=== PATIENT | male | born 1940 | race Caucasian/White ===

== ENCOUNTER → 2019-11-29 13:43 | Outpatient (BNVA) | payer MEDICARE, SELFPAY | PROVIDERS: Family Provider Family Medicine; Visit Provider Nurse Practitioner Family | DX: Z11.59 Encounter for screening for other viral diseases (principal) | CPT/HCPCS: 87635 ==

== ENCOUNTER → 2022-01-01 10:10 | Outpatient (BNVA) | payer MEDICARE, SELFPAY | PROVIDERS: Family Provider Family Medicine; PCP Family Medicine; Visit Provider Family Medicine | DX: Z51.81 Encounter for therapeutic drug level monitoring (principal); R73.03 Prediabetes; I10 Essential (primary) hypertension; R30.0 Dysuria | CPT/HCPCS: 80053; 80061; 81000; 83036; 85025; 87077; 87086; 87184 ==

== ENCOUNTER 2022-02-17 09:54 | Outpatient (CLI) | payer MEDICARE, SELFPAY ==
--- NOTE | 2022-02-17 10:15 | US_ITS ---
WS: [id number] 1.44 x 1.75 x 1.85 cm. Bilateral renal ultrasound, 02/17/2022 Clinical Data: Urinary retention - With pre/post void res volume Comparison: None. Findings: The right kidney measures 10.5 cm x 4.6 cm x 5.2 cm and the left kidney is 11.4 cm x 4.9 cm x 5.1 cm. There is a simple left renal cyst measuring 1.44 x 1.75 x 1.85 cm. There are no masses or hydronephr osis. The renal cortical margin is normal. No renal calculi are seen. The prostate is enlarged measuring 3.64 x 3.86 x 4.03 cm. The abdominal aorta and inferior vena cava show no vascular abnormalities. Prevoid bladder had 82 mL and postvoid 18 mL. US/US renal BI with PV bladder Impression: 1. Negative bilateral renal ultrasound with incidental left renal cyst. 2. Prostate enlargement. 3. Prevoid bladder head 82 mL and postvoid 18 mL.
== END 2022-02-17 09:55 | disposition home or self-care (01) ==
PROVIDERS: PCP Family Medicine; Visit Provider Family Medicine
DX: R33.9 Retention of urine, unspecified (principal); N28.1 Cyst of kidney, acquired; N40.0 Benign prostatic hyperplasia without lower urinary tract symptoms
CPT/HCPCS: 76770; 76857

== ENCOUNTER → 2022-07-23 09:31 | Outpatient (BNVA) | payer MEDICARE, SELFPAY | PROVIDERS: PCP Family Medicine; Visit Provider Family Medicine | DX: E03.9 Hypothyroidism, unspecified (principal); R73.03 Prediabetes; Z51.81 Encounter for therapeutic drug level monitoring | CPT/HCPCS: 80053; 83036; 84443; 85025; 87086 ==

== ENCOUNTER → 2022-11-24 13:48 | Outpatient (BNVA) | payer MEDICARE, SELFPAY | PROVIDERS: PCP Family Medicine; Visit Provider Family Medicine | DX: R41.3 Other amnesia (principal); R30.0 Dysuria; R32 Unspecified urinary incontinence; R21 Rash and other nonspecific skin eruption | CPT/HCPCS: 87086 ==

== ENCOUNTER 2022-12-29 12:47 | Outpatient (CLI) | payer MEDICARE, SELFPAY ==
--- NOTE | 2022-12-29 13:45 | MR_ITS ---
WS: [id number] MRI BRAIN WITH AND WITHOUT CONTRAST HISTORY: Memory loss COMPARISON: None available. TECHNIQUE: Multiplanar imaging performed through the brain with MultiHance 20 ml's IV. No acute infarcts. Moderate bilateral cerebellar and cerebral atrophy. Moderate small vessel ischemic changes in the periventricular and subcortical white matter. Moderate bilateral hippocampal atrophy. No susceptibility artifacts or prior lacunar infarcts. Ventricles and extra-axial spaces are prominent on the basis of atrophy. Clivus and pituitary gland are normal. Visualized posterior fossa and brainstem are also normal. Postcontrast images are negative for masses or vascular malformations. Arteries are ectatic probably due to longstanding hypertension. Dural venous sinuses are normal. Paranasal sinuses: Well aerated with no significant disease. Mastoid air cells: Normal. Calvarium and scalp: Normal. IMPRESSION: 1. No acute infarct or mass. 2. Moderate cerebral and cerebellar atrophy with advanced small vessel ischemic disease. 3. No prior large territory infarct. 4. Ventriculomegaly is mild on the basis of atrophy.
[2022-12-29] MEDS: gadobenate dimeglumine 20 mL vial IV (14:18)
== END 2022-12-29 12:48 | disposition home or self-care (01) ==
LOC: RAD 12:48
PROVIDERS: PCP Family Medicine; Visit Provider Family Medicine
DX: R41.3 Other amnesia (principal); G31.9 Degenerative disease of nervous system, unspecified; G93.89 Other specified disorders of brain
CPT/HCPCS: 70553; A9577

== ENCOUNTER → 2023-01-25 10:46 | Outpatient (BNVA) | payer MEDICARE, SELFPAY | PROVIDERS: PCP Family Medicine; Visit Provider Psychiatry & Neurology Neurology | DX: R32 Unspecified urinary incontinence (principal); R15.9 Full incontinence of feces; R29.898 Other symptoms and signs involving the musculoskeletal system; R26.89 Other abnormalities of gait and mobility; G93.89 Other specified disorders of brain; L60.2 Onychogryphosis; M54.9 Dorsalgia, unspecified; R41.3 Other amnesia; E55.9 Vitamin D deficiency, unspecified; R29.2 Abnormal reflex; R68.89 Other general symptoms and signs; R26.81 Unsteadiness on feet | CPT/HCPCS: 36415; 82306; 82607; 83735; 83921; 84207; 85025; 86592; 86617; 86780; 99203 ==

== ENCOUNTER → 2023-01-27 14:32 | Outpatient (BNVA) | payer MEDICARE, SELFPAY | PROVIDERS: PCP Family Medicine; Visit Provider Podiatrist Foot & Ankle Surgery | DX: B35.1 Tinea unguium (principal); M79.661 Pain in right lower leg; M79.662 Pain in left lower leg | CPT/HCPCS: 11721; 99203 ==

== ENCOUNTER 2023-03-21 13:43 | Oncology outpatient (recurring) (ONCR) | payer MEDICARE, SELFPAY ==
[2023-03-21 15:50] LABS: Basophils # 0.1 10^3/uL (0.0-0.1); Basophils % 0.8 %; Eosinophils # 0.4 10^3/uL (0.0-0.8); Eosinophils % 3.2 %; Hematocrit 42.2 % (37-53); Lymphocytes # 3.1 10^3/uL (0.8-4.8); Lymphocytes % 26.2 %; Mean Corpuscular HGB Conc 33.6 g/dL (30-55); Mean Corpuscular Hemoglobin 33.2 pg (27-33); Mean Corpuscular Volume 98.6 fl (82-101); Mean Platelet Volume 9.9 fL (7.4-10.4); Monocytes # 1.1 10^3/uL (0.2-0.9); Monocytes % 9.5 %; Neutrophils # 7.04 10^3/uL (1.8-7.7); Neutrophils % 58.9 %; Nucleated Red Blood Cells % 0 %; Platelet Count 370 10^3/cmm (157-399); Red Blood Count 4.28 10^6/uL (3.85-5.65); Red Cell Distribution Width 15.2 % (12.1-15.1); White Blood Count 11.95 10^3/uL (3.29-11.43)
[2023-03-21 16:26] LABS: Alanine Aminotransferase 24 U/L (0-41); Albumin Level 4.1 g/dL (3.5-5.2); Alkaline Phosphatase 68 U/L (40-130); Anion Gap 13.5 (5-19); Aspartate Amino Transferase 22 U/L (0-40); Blood Urea Nitrogen 25 mg/dL (8-23); Calcium 9.6 mg/dL (8.5-10.5); Carbon Dioxide 28 mmol/L (22-29); Chloride 99 mmol/L (98-107); Creatinine Clr Calc Pharmacy 74.5422; Globulin 3.2 g/dL (1.3-4.6); Glucose 112 mg/dL (65-115); Osmolality Calculated 287 mOsm/kg (285-295); Potassium 4.5 mmol/L (3.5-5.1); Sodium 136 mmol/L (136-145); Total Bilirubin 0.4 mg/dL (0.15-1.2); Total Protein 7.3 g/dL (6.6-8.7)
[2023-03-21 16:43] LABS: Folate Level 2.6 ng/mL (4.5-32.2)
[2023-03-21 17:35] LABS: Vitamin B12 > 2000 pg/mL (232-1245)
[2023-03-25 15:41] LABS: Methylmalonic Acid 138 nmol/L (87-318)
== END 2023-04-14 23:59 | disposition home or self-care (01) ==
PROVIDERS: PCP Family Medicine; Visit Provider Internal Medicine
DX: D75.89 Other specified diseases of blood and blood-forming organs (principal); E53.8 Deficiency of other specified B group vitamins; R41.3 Other amnesia; R20.2 Paresthesia of skin
CPT/HCPCS: 36415; 80053; 82607; 82746; 83921; 85025; 99204

== ENCOUNTER → 2023-04-11 14:10 | Outpatient (BNVA) | payer MEDICARE, SELFPAY | PROVIDERS: PCP Family Medicine; Visit Provider Psychiatry & Neurology Neurology | DX: R32 Unspecified urinary incontinence (principal); R15.9 Full incontinence of feces; R29.898 Other symptoms and signs involving the musculoskeletal system; R29.2 Abnormal reflex; R68.89 Other general symptoms and signs; R26.81 Unsteadiness on feet; G93.89 Other specified disorders of brain | CPT/HCPCS: 99212 ==

== ENCOUNTER 2023-04-19 13:33 | Oncology outpatient (recurring) (ONCR) | payer MEDICARE, SELFPAY ==
[2023-04-19 14:51] LABS: Basophils # 0.1 10^3/uL (0.0-0.1); Basophils % 0.8 %; Eosinophils # 0.3 10^3/uL (0.0-0.8); Eosinophils % 2.6 %; Hematocrit 38.9 % (37-53); Lymphocytes # 2.9 10^3/uL (0.8-4.8); Lymphocytes % 28.4 %; Mean Corpuscular HGB Conc 33.4 g/dL (30-55); Mean Corpuscular Hemoglobin 33.1 pg (27-33); Mean Platelet Volume 10.3 fL (7.4-10.4); Monocytes % 9.6 %; Neutrophils # 5.95 10^3/uL (1.8-7.7); Nucleated Red Blood Cells % 0 %; Platelet Count 309 10^3/cmm (157-399); Red Blood Count 3.93 10^6/uL (3.85-5.65); Red Cell Distribution Width 15.9 % (12.1-15.1); White Blood Count 10.25 10^3/uL (3.29-11.43)
[2023-04-19 15:16] LABS: Alanine Aminotransferase 19 U/L (0-41); Albumin Level 4.1 g/dL (3.5-5.2); Alkaline Phosphatase 52 U/L (40-130); Anion Gap 11.7 (5-19); Aspartate Amino Transferase 16 U/L (0-40); Blood Urea Nitrogen 26 mg/dL (8-23); Calcium 9.2 mg/dL (8.5-10.5); Carbon Dioxide 26 mmol/L (22-29); Chloride 105 mmol/L (98-107); Globulin 2.5 g/dL (1.3-4.6); Glucose 98 mg/dL (65-115); Osmolality Calculated 291 mOsm/kg (285-295); Potassium 4.7 mmol/L (3.5-5.1); Sodium 138 mmol/L (136-145); Total Bilirubin 0.4 mg/dL (0.15-1.2); Total Protein 6.6 g/dL (6.6-8.7)
[2023-04-19 16:23] LABS: Vitamin B12 > 2000 pg/mL (232-1245)
[2023-04-19 17:29] LABS: Folate Level 17.2 ng/mL (4.5-32.2)
[2023-04-23 10:50] LABS: Parietal Cell Antibody NEGATIVE (NEGATIVE)
[2023-04-24 16:59] LABS: Intrinsic Factor Blocking AB NEGATIVE
== END 2023-05-15 23:59 | disposition home or self-care (01) ==
PROVIDERS: Nurse Practitioner Family; PCP Family Medicine; Visit Provider Internal Medicine
DX: D75.89 Other specified diseases of blood and blood-forming organs (principal); E53.8 Deficiency of other specified B group vitamins; R41.3 Other amnesia; R20.2 Paresthesia of skin; Z53.9 Procedure and treatment not carried out, unspecified reason
CPT/HCPCS: 36415; 80053; 82607; 82746; 85025; 86255; 86340; 99214

== ENCOUNTER → 2023-06-30 11:24 | Outpatient (BNVA) | payer MEDICARE, SELFPAY | PROVIDERS: PCP Family Medicine; Visit Provider Psychiatry & Neurology Neurology | DX: R32 Unspecified urinary incontinence (principal); R15.9 Full incontinence of feces; R29.898 Other symptoms and signs involving the musculoskeletal system; R29.2 Abnormal reflex; R68.89 Other general symptoms and signs; R26.81 Unsteadiness on feet; G93.89 Other specified disorders of brain; F17.220 Nicotine dependence, chewing tobacco, uncomplicated | CPT/HCPCS: 99212 ==

== ENCOUNTER 2023-09-29 08:47 | Outpatient (CLI) | payer MEDICARE, SELFPAY ==
--- NOTE | 2023-09-29 08:52 | MR_ITS ---
WS: [id number] MRI LUMBAR SPINE NONCONTRAST HISTORY: SPINAL STENOSIS COMPARISON: 03/31/2011 TECHNIQUE: Sagittal and axial multisequence imaging is submitted. No axial imaging. Patient requested the study be terminated after the sagittal sequences were performed. Posterior lumbar vertebral bodies are normally aligned. No fractures. There is very minimal disc spac e narrowing and desiccation at L4-5 and L5-S1. Conus tapers normally with no compression. Conus terminates normally at L1-2 disc level. L1-L2: No foraminal stenosis or central stenosis. L2-L3: Mild disc bulging. No stenosis. L3-L4: Mild osteophytic ridging and annular disc bulging. There is mild foraminal narrowing. L4-L5: Mild annular disc bulging with mild ligamentum flavum and facet arthritis. There is a shallow central disc protrusion. More focal stenosis of the RIGHT foramen. There is a disc protrusion with os teophytes and facet arthritis. There is at least moderate stenosis which has progressed since 2011. M ild stenosis on the LEFT. L5-S1: Annular disc bulging with osteophytic ridging. There is mild to moderate bilateral foraminal s tenosis similar to the prior study. Paravertebral soft tissues as visualized are normal. MR/MR lumbar spine wo con* [id number] IMPRESSION: 1. Limited lumbar MRI. Patient terminated study after the sagittal sequences w ere obtained. No axial sequences submitted. 2. L4-5: Progression of RIGHT foraminal stenosis due to combination disc protr usion, osteophyte and facet disease. There is at least moderate stenosis now pr esent in the RIGHT L4-5 foramen. Mild stenosis on the LEFT. 3. Mild to moderate bilateral foraminal stenosis at L5-S1 is similar to the pr ior study.
== END 2023-09-29 08:48 | disposition home or self-care (01) ==
LOC: RAD 08:49
PROVIDERS: PCP Family Medicine; Visit Provider Psychiatry & Neurology Neurology
DX: M48.07 Spinal stenosis, lumbosacral region (principal); M51.37 Other intervertebral disc degeneration, lumbosacral region
CPT/HCPCS: 72148

== ENCOUNTER → 2023-11-03 14:52 | Outpatient (BNVA) | payer MEDICARE, SELFPAY | PROVIDERS: PCP Family Medicine; Visit Provider Orthopaedic Surgery | DX: M54.50 Low back pain, unspecified (principal); G89.29 Other chronic pain | CPT/HCPCS: 72110; 99203 ==

== ENCOUNTER → 2023-12-12 15:30 | Outpatient (BNVA) | payer MEDICARE, SELFPAY | PROVIDERS: PCP Family Medicine; Visit Provider Psychiatry & Neurology Neurology | DX: M54.50 Low back pain, unspecified (principal); R29.2 Abnormal reflex | CPT/HCPCS: 99212; 99213 ==

== ENCOUNTER → 2023-12-14 09:43 | Outpatient (BNVA) | payer MEDICARE, SELFPAY | PROVIDERS: PCP Family Medicine; Visit Provider Family Medicine | DX: Z51.81 Encounter for therapeutic drug level monitoring (principal); E55.9 Vitamin D deficiency, unspecified; R63.4 Abnormal weight loss; R32 Unspecified urinary incontinence; E53.8 Deficiency of other specified B group vitamins; N39.0 Urinary tract infection, site not specified | CPT/HCPCS: 80053; 81000; 82306; 82607; 82746; 84153; 84443; 85025; 86141 ==

== ENCOUNTER 2023-12-22 10:41 | Emergency (ER) | payer MEDICARE, SELFPAY ==
[2023-12-22 10:52] VITALS: BP 162/78; PULSE 52; RESP 18; TEMP 36.6; O2SAT 95; BMI 25.8
--- NOTE | 2023-12-22 10:56 | ECG_ITS ---
[facility]: 2023[facility]22 Pat Name: Cleveland Keita Department: Room: Gender: Male Furniture Finisher: : 1940 Requested By: Stepan Palomo Order Number: [id number] Concepcion MD: Collin Rodríguez M.D. Measurements Intervals [place] Rate: 53 P: 30 CA: 178 QRS: -18 QRSD: 99 T: 10 QT: 426 QTc: 401 Interpretive Statements SINUS BRADYCARDIA INDETERMINATE AXIS VOLTAGE CRITERIA FOR LVH [MEETS CRITERIA IN ONE OF: R(aVL), S(V1), R(V5), R(V5/V6)+S(V1)] No previous ECG available for comparison Electronically Signed On 12-22-2023 21:38:55 MATHEMATICAL ENGINEER by Collin Rodríguez M.D. [email or web address]
--- NOTE | 2023-12-22 10:56 | XR_ITS ---
WS: [id number] XR chest 1V portable [id number] REASON FOR EXAM: Uncontrolled hypertension FINDINGS: Moderate tortuosity of the thoracic aorta. Mild cardiomegaly. Calcified granulomas disease in both hemithoraces. No acute pulmonary parenchymal or pleural abnormality. Mild thoracic scoliosis with significant degenerative spondylosis of the thoracic spine. 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 XR/XR chest 1V portable [id number] IMPRESSION: No acute chest abnormality.
--- NOTE | 2023-12-22 11:04 | W.ED.ABDPA2 ---
HPI - Abdominal Pain General: Chief Complaint: Abdominal Pain Stated Complaint: b/p not under control, no apptiet, confuse Time Seen by Provider: 12/22/23 10:55 History of Present Illness: 83-year-old male presents to the emergency room with complaints of his blood pressure being poorly controlled. And he is somewhat confused he does have some dementia recently. Is also complaining some mild abdominal discomfort he usually wears depends he is been having worsening urinary continence he has not been voiding regularly. He denies any abdominal or flank pain no reported fever sweats or chills Associated Symptoms: Denies chills, dysuria and fever(s) Related Data Home Medications Medication Instructions Recorded Confirmed cholecalciferol (vitamin D3) 50 50 mcg PO DAILY 07/23/22 12/22/23 mcg (2,000 unit) capsule carvedilol 6.25 mg tablet 6.25 mg PO BID 12/22/23 12/22/23 tamsulosin 0.4 mg capsule 0.4 mg PO QPM 12/22/23 12/22/23 Previous Rx's Medication Instructions Recorded amlodipine 2.5 mg tablet 2.5 mg PO DAILY #90 tabs 03/08/23 cyanocobalamin (vitamin B-12) 1,000 mcg IM .weekly #7 mL 03/21/23 1,000 mcg/mL injection solution folic acid 1 mg tablet 1 mg PO DAILY #30 tabs 03/23/23 lisinopril 20 mg tablet 20 mg PO DAILY #90 tabs 11/21/23 ciprofloxacin HCl 500 mg tablet 500 mg PO BID #14 tabs 12/22/23 tamsulosin 0.4 mg capsule 0.8 mg (2 x 0.4 mg) PO DAILY #60 12/22/23 caps Allergies Allergy/AdvReac Type Severity Reaction Status Date / Time No Known Allergies Allergy Verified 11/03/23 15:37 Review of Systems Const: Denies: fever(s) or chills Card: Denies: chest pain Resp: Denies: dyspnea GI: Reports: abdominal pain : Denies: dysuria, urinary frequency or urinary urgency Musc: Denies: neck pain or back pain Skin/Breast: Denies: rash Neuro: Reports: confusion and behavioral changes [facility] ED PFSH: Medical History Vitamin B12 deficiency Macrocytosis without anemia Memory problem Hypertension Prediabetes Surgical History Hx of basal cell carcinoma Social History Smoking and tobacco/nicotine status: never used tobacco/nicotine Quit status (tobacco/nicotine): has quit using Former quit date comment: Quit smoking in 1984 - now chews tobacco Alcohol intake: former Physical Exam Const: COMMON NORMALS: no acute distress GENERAL APPEARANCE: cooperative and comfortable ORIENTATION/CONSCIOUSNESS: Yes awake HENMT: COMMON NORMALS: normocephalic, atraumatic and hearing grossly normal bilaterally HEAD & SCALP: normocephalic and atraumatic Resp: COMMON NORMALS: normal respiratory effort, No retractions, No use of accessory muscles and clear to auscultation bilaterally AUSCULTATION: clear to auscultation bilaterally Cardio: COMMON NORMALS: regular rate, regular rhythm and No murmurs present (Cardio) RATE: regular rate RHYTHM: regular rhythm GI: COMMON NORMALS: Soft to palpation and No hepatosplenomegaly present AUSCULTATION: Yes normoactive bowel sounds PALPATION: Yes Soft to palpation, No Tenderness to palpation present (GI), No Guarding due to palpation present (GI) and Yes No hepatosplenomegaly present Extremity: COMMON NORMALS: normal to inspection, capillary refill normal, no clubbing, cyanosis or edema, no calf tenderness and no pedal edema Skin: COMMON NORMALS: no rashes or lesions noted GENERAL SKIN EXAM: no rashes or lesions noted Course Vital Signs: Vital signs: Vital Signs Temperature 97.9 F 12/22/23 10:52 Pulse Rate 58 L 12/22/23 13:08 Respiratory Rate 18 12/22/23 10:52 Blood Pressure 178/86 12/22/23 12:44 Pulse Oximetry 100 12/22/23 13:08 Oxygen Delivery Me thod Room Air 12/22/23 10:52 MDM - Abdominal Pain Medical Decision Making Patient urinary retention. He does have a little bit of red and white blood cells in urine I suspect it is probably from a traumatic cath but he had a positive trace leukocyte Estrace. His white count is not significantly elevated. Will start him on Cipro for now till we get the culture back. We did drain around 1999 from his bladder with a catheter he had pretty significant hydronephrosis with the CT but no sign of any abscess ureter ureteral obstruction. Will discharge patient home increase his tamsulosin and refer to urology. Medical Records I reviewed the patient's medical records. Lab Data I reviewed the patient's lab results. 12/22/23 11:41 12/22/23 11:41 Labs/Radiology: Radiology Impressions Chest X-Ray 12/22/23 10:56 IMPRESSION: No acute chest abnormality. Abdomen/Pelvis CT 12/22/23 11:05 IMPRESSION: 1. Urinary bladder is prominently distended. Recommend correlation for potential bladder outlet obstruction secondary to prostatomegaly. 2. Mild bilateral hydronephrosis and hydroureter. This supports the diagnosis of bladder outlet obstruction. 3. Prostate is moderately enlarged, with multiple coarse internal calcifications. COMMENTS: Consistent with the [employer]'s Incidental Findings Committee white paper (J Am Ellie Radiol 2018): Any incidental renal lesion less than 1 cm or classified as too small to characterize, or any incidental cystic renal lesion characterized as simple-appearing, is likely benign. No follow-up imaging is recommended for these lesions per consensus recommendations based on imaging criteria. ADDENDUM: 12/22/23 1146 ADDENDUM: THIS REPORT CONTAINS FINDINGS THAT MAY BE CRITICAL TO PATIENT CARE. The findings were verbally communicated via telephone conference with Dr. Sánchez at 11:44 AM SPECIAL DIET COOK on 12/22/2023. The findings were acknowledged and understood. Head CT 12/22/23 11:05 IMPRESSION: 1. Mild to moderate small vessel disease. No evidence of acute intracranial process. 2. Disproportionate temporal lobe atrophy. Laboratory Results WBC 11.10 10^3/uL (3.29-11.43) 12/22/23 11:41 RBC 4.13 10^6/uL (3.85-5.65) 12/22/23 11:41 Hgb 13.80 g/dL (11.27-16.99) 12/22/23 11:41 Hct 42.4 % (37-53) 12/22/23 11:41 MCV 102.7 fl (82-101) H 12/22/23 11:41 MCH 33.4 pg (27-33) H 12/22/23 11:41 MCHC 32.5 g/dL (30-55) 11/07/24 11:41 RDW 15.0 % (12.1-15.1) 12/22/23 11:41 Plt Count 358 10^3/cmm (157-399) 12/22/23 11:41 MPV 9.9 fL (7.4-10.4) 12/22/23 11:41 Neut % (Auto) 67.1 % 12/22/23 11:41 Lymph % (Auto) 20.5 % 12/22/23 11:41 [place] % (Auto) 8.4 % 12/22/23 11:41 Eos % (Auto) 1.9 % 12/22/23 11:41 Baso % (Auto) 1.0 % 12/22/23 11:41 Neut # (Auto) 7.46 10^3/uL (1.8-7.7) 12/22/23 11:41 Lymph # (Auto) 2.3 10^3/uL (0.8-4.8) 12/22/23 11:41 Republic # (Auto) 0.9 10^3/uL (0.2-0.9) 12/22/23 11:41 Eos # (Auto) 0.2 10^3/uL (0.0-0.8) 12/22/23 11:41 Baso # (Auto) 0.1 10^3/uL (0.0-0.1) 12/22/23 11:41 Nucleated RBC % (auto) 0 % 12/22/23 11:41 Nucleated RBCs # 0.0 /100WBC 12/22/23 11:41 Sodium 143 mmol/L (136-145) 12/22/23 11:41 Potassium 3.9 mmol/L (3.5-5.1) 12/22/23 11:41 Chloride 104 mmol/L (98-107) 12/22/23 11:41 Carbon Dioxide 27 mmol/L (22-29) 12/22/23 11:41 Anion Gap 15.9 (5-19) 12/22/23 11:41 BUN 23 mg/dL (8-23) 12/22/23 11:41 Creatinine 1.1 mg/dL (0.7-1.2) 12/22/23 11:41 GFR Calculation Not Reportable 12/22/23 11:41 Glucose 116 mg/dL (65-115) H 12/22/23 11:41 Calculated Osmolality 301 mOsm/kg (285-295) H 12/22/23 11:41 Calcium 8.8 mg/dL (8.5-10.5) 12/22/23 11:41 Total Bilirubin 0.5 mg/dL (0.15-1.2) 12/22/23 11:41 AST 18 U/L (0-40) 12/22/23 11:41 ALT 14 U/L (0-41) 12/22/23 11:41 Alkaline Phosphatase 66 U/L (40-130) 12/22/23 11:41 Creatine Kinase 116 U/L (39-308) 12/22/23 11:41 Total Protein 6.8 g/dL (6.6-8.7) 12/22/23 11:41 Albumin 3.7 g/dL (3.5-5.2) 12/22/23 11:41 Globulin 3.1 g/dL (1.3-4.6) 12/22/23 11:41 Lipase 31 U/L (13-60) 12/22/23 11:41 Urine Color Yellow (Yellow) 12/22/23 12:38 Urine Appearance Clear (CLEAR) 12/22/23 12:38 Urine pH 5.5 (5-7) 12/22/23 12:38 Ur Specific [place] 1.014 (1.005-1.030) 12/22/23 12:38 Urine Protein Negative (Negative) 12/22/23 12:38 Urine Glucose (UA) Negative (Normal) 12/22/23 12:38 Urine Ketones Negative (Negative) 12/22/23 12:38 Urine Blood 1+ (Negative) A 12/22/23 12:38 Urine Nitrate Negative (Negative) 12/22/23 12:38 Urine Bilirubin Negative (Negative) 12/22/23 12:38 Urine Urobilinogen 0.2 mg/dL (Negative) 12/22/23 12:38 Ur Leukocyte Esterase Trace (Negative) A 12/22/23 12:38 Urine RBC 6-10 /hpf (0-2) 12/22/23 12:38 Urine WBC 6-10 /hpf (0-5) 12/22/23 12:38 Ur Squamous Epith Cells 0-5 /hpf (0-5) 12/22/23 12:38 Amorphous Sediment Not Reportable 12/22/23 12:38 Urine Bacteria None seen /hpf (NONE) 12/22/23 12:38 Hyaline Casts 0.40 /lpf 12/22/23 12:38 All radiology interpretation(s) finalized by discharge Discharge Plan Discharge Patient Disposition: Home Clinical Impression: Urinary retention Condition: Stable Prescriptions: New tamsulosin 0.4 mg capsule 0.8 mg PO DAILY Qty: 60 0RF ciprofloxacin HCl 500 mg tablet 500 mg PO BID Qty: 14 0RF No Action cholecalciferol (vitamin D3) 50 mcg (2,000 unit) capsule 50 mcg PO DAILY cyanocobalamin (vitamin B-12) 1,000 mcg/mL solution 1,000 mcg IM .weekly Qty: 7 0RF Rx Instructions: 1000 mcg IM weekly x 4 weeks, then 1000mcg IM monthly. amlodipine 2.5 mg tablet 2.5 mg PO DAILY Qty: 90 3RF folic acid 1 mg tablet 1 mg PO DAILY Qty: 30 3RF lisinopril 20 mg tablet 20 mg PO DAILY Qty: 90 3RF carvedilol 6.25 mg tablet 6.25 mg PO BID tamsulosin 0.4 mg capsule 0.4 mg PO QPM Discharge Orders: Discharge ED (Routine); Ordered 12/22/23 Ordered By: Stepna Sánchez Referrals: Franko Mena MD [Primary Care Provider] - Patient Instructions: Opioid Safety, Pain Management Activity Restrictions/Additional Instructions: Thank you for choosing [facility] for your healthcare needs today. It is very important that you follow up as instructed or that you return to the Emergency Department should you have concerns or if your condition changes or worsens in any way. You were seen in the emergency room with urinary retention. This is likely caused by thickening of your prostate. We placed a catheter in your bladder to drain the urine. There was some blood I suspect this may be from the prostate. Your other labs were normal. Will start you on initial antibiotic until the culture gets back. Coding Level of Care Code ED Antique Dealer for Shalom Ackerman
--- NOTE | 2023-12-22 11:05 | CTR_ITS ---
PROCEDURE INFORMATION: Exam: CT Head Without Contrast Exam date and time: 12/22/2023 11:15 AM Age: 83 years old Clinical indication: Altered mental status/memory loss; Confusion or disorientation; Additional info: AMS TECHNIQUE: Imaging protocol: Computed tomography of the head without contrast. Radiation optimization: All CT scans at this facility use at least one of these dose optimization techniques: automated exposure control; mA and/or kV adjustment per patient size (includes targeted exams where dose is matched to clinical indication); or iterative reconstruction. COMPARISON: MR head wo/w con [id number] 12/29/2022 1:42 PM RADIATION DOSE METRICS: Total DLP (mGy-cm): 1068.73 FINDINGS: Brain: There is mild to moderate small vessel disease. There is disproportionate temporal lobe atrophy. There is no evidence of acute parenchymal hemorrhage, extra-axial collection, or acute infarction. There is no mass effect, midline shift, or downward herniation. Cerebral ventricles: No ventriculomegaly. Paranasal sinuses: Visualized sinuses are unremarkable. No fluid levels. Mastoid air cells: Visualized mastoid air cells are well aerated. Bones: Unremarkable. No acute fracture. Soft tissues: Unremarkable. CT/CT head wo con* [id number] IMPRESSION: 1. Mild to moderate small vessel disease. No evidence of acute intracranial process. 2. Disproportionate temporal lobe atrophy.
--- NOTE | 2023-12-22 11:05 | CTR_ITS ---
PROCEDURE INFORMATION: Exam: CT Abdomen And Pelvis Without Contrast Exam date and time: 12/22/2023 11:18 AM Age: 83 years old Clinical indication: Abdominal pain; Generalized TECHNIQUE: Imaging protocol: Computed tomography of the abdomen and pelvis without contrast. Radiation optimization: All CT scans at this facility use at least one of these dose optimization techniques: automated exposure control; mA and/or kV adjustment per patient size (includes targeted exams where dose is matched to clinical indication); or iterative reconstruction. COMPARISON: MR lumbar spine wo con* [id number] 09/29/2023 9:26 AM RADIATION DOSE METRICS: Total DLP (mGy-cm): 895.93 FINDINGS: Liver: Multiple small coarse calcifications within the liver likely secondary to prior granulomatous disease. Multiple subcentimeter hypoattenuating lesions in the liver, too small to further characterize, likely cysts. No suspicious hepatic masses. Gallbladder and biliary ducts: The gallbladder is unremarkable. No biliary ductal dilatation. Pancreas: Mild atrophy of the pancreas. No pancreatic ductal dilation. Spleen: The spleen is unremarkable. Adrenal glands: The adrenal glands are unremarkable. Kidneys and ureters: Multiple bilateral renal cysts, poorly visualized, measuring up to 1.8 cm. Mild bilateral hydronephrosis and hydroureter. Stomach and bowel: Moderate rectal stool burden. Mild scattered colonic diverticulosis. No CT evidence of focal acute diverticulitis. Nonobstructive bowel gas pattern. Appendix: No evidence of acute appendicitis. Intraperitoneal space: No extraluminal free air. No significant free fluid in the abdomen or pelvis. Vasculature: Moderate scattered calcific atheromatous disease of the abdominal aorta and its major branches. No abdominal aortic aneurysm. Lymph nodes: No distinct pathologically enlarged lymphadenopathy. Urinary bladder: Urinary bladder is prominently distended. Reproductive: Prostate is moderately enlarged, with multiple coarse internal calcifications. Bones/joints: Discogenic degenerative changes at L5-S1. Multilevel facet arthropathy. No acute osseous findings. Soft tissues: Visualized superficial soft tissues are within normal limits. CT/CT abdomen pelvis wo con [id number] IMPRESSION: 1. Urinary bladder is prominently distended. Recommend correlation for potential bladder outlet obstruction secondary to prostatomegaly. 2. Mild bilateral hydronephrosis and hydroureter. This supports the diagnosis of bladder outlet obstruction. 3. Prostate is moderately enlarged, with multiple coarse internal calcifications. COMMENTS: Consistent with the [employer]'s Incidental Findings Committee white paper (J Am Ellie Radiol 2018): Any incidental renal lesion less than 1 cm or classified as too small to characterize, or any incidental cystic renal lesion characterized as simple-appearing, is likely benign. No follow-up imaging is recommended for these lesions per consensus recommendations based on imaging criteria.
[2023-12-22 12:00] LABS: Basophils # 0.1 10^3/uL (0.0-0.1); Eosinophils # 0.2 10^3/uL (0.0-0.8); Eosinophils % 1.9 %; Hematocrit 42.4 % (37-53); Lymphocytes # 2.3 10^3/uL (0.8-4.8); Lymphocytes % 20.5 %; Mean Corpuscular HGB Conc 32.5 g/dL (30-55); Mean Corpuscular Hemoglobin 33.4 pg (27-33); Mean Corpuscular Volume 102.7 fl (82-101); Mean Platelet Volume 9.9 fL (7.4-10.4); Monocytes # 0.9 10^3/uL (0.2-0.9); Monocytes % 8.4 %; Neutrophils # 7.46 10^3/uL (1.8-7.7); Neutrophils % 67.1 %; Nucleated Red Blood Cells % 0 %; Platelet Count 358 10^3/cmm (157-399); Red Blood Count 4.13 10^6/uL (3.85-5.65)
--- NOTE | 2023-12-22 12:08 | PC.PHAR ---
patient states he does not take prazosin 1mg bid any longer because he said it doesn't work for his mood like it was intended for
[2023-12-22 12:11] LABS: Alanine Aminotransferase 14 U/L (0-41); Albumin Level 3.7 g/dL (3.5-5.2); Alkaline Phosphatase 66 U/L (40-130); Anion Gap 15.9 (5-19); Aspartate Amino Transferase 18 U/L (0-40); Blood Urea Nitrogen 23 mg/dL (8-23); Calcium 8.8 mg/dL (8.5-10.5); Carbon Dioxide 27 mmol/L (22-29); Chloride 104 mmol/L (98-107); Creatinine Clr Calc Pharmacy 55.9926; Globulin 3.1 g/dL (1.3-4.6); Glucose 116 mg/dL (65-115); Osmolality Calculated 301 mOsm/kg (285-295); Potassium 3.9 mmol/L (3.5-5.1); Sodium 143 mmol/L (136-145); Total Bilirubin 0.5 mg/dL (0.15-1.2); Total Protein 6.8 g/dL (6.6-8.7)
--- NOTE | 2023-12-22 12:43 | PC.NURSE ---
clamped molina catheter @1240 d/t 1600mL output post catheter insertion.
[2023-12-22 12:44] VITALS: BP 178/86; PULSE 58; O2SAT 98
[2023-12-22 12:49] LABS: Bilirubin Urine Negative (Negative); Blood Urine 1+ (Negative); Glucose Urine UA Negative (Normal); Ketones Urine Negative (Negative); Leukocyte Esterase Urine Trace (Negative); Nitrate Urine Negative (Negative); Protein Urine Negative (Negative); Specific Gravity, Urine 1.014 (1.005-1.030); Urine Appearance Clear (CLEAR); Urine Color Yellow (Yellow); Urobilinogen Urine 0.2 mg/dL (Negative); pH Urine 5.5 (5-7)
[2023-12-22 12:50] LABS: Creatine Phosphokinase 116 U/L (39-308); Lipase 31 U/L (13-60)
[2023-12-22 12:54] LABS: Add Urine Microscopic? YES; Bacteria Urine None Seen /hpf; Squamous Epithelial Cell Urine 0-5 /hpf (0-5)
[2023-12-22 13:08] VITALS: PULSE 58; O2SAT 100
--- NOTE | 2023-12-22 13:17 | PC.NURSE ---
unclamped molina @1300 approx. catheter draining
[2023-12-22 14:51] VITALS: O2SAT 100
== END 2023-12-22 14:55 | disposition home or self-care (01) ==
PROVIDERS: Emergency Provider Family Medicine; PCP Family Medicine
DX: R33.9 Retention of urine, unspecified (principal); Z87.891 Personal history of nicotine dependence; I10 Essential (primary) hypertension
CPT/HCPCS: 51702; 70450; 71045; 74176; 80053; 81001; 82550; 83690; 85025; 93005; 99285

== ENCOUNTER → 2024-01-02 15:15 | Outpatient (BNVA) | payer MEDICARE, SELFPAY | PROVIDERS: PCP Family Medicine; Visit Provider Family Medicine | DX: N39.0 Urinary tract infection, site not specified (principal) | CPT/HCPCS: 87086 ==